=== PATIENT | female | born 1965 | race Caucasian/White ===

== ENCOUNTER 2016-12-12 07:55 | Day surgery (SDC) | payer OTHER ==
[~2016-12-12] VITALS: Ht 157.5 cm; Wt 67.6 kg
[2016-12-12 08:45] VITALS: Ht 157.5 cm; Wt 67.6 kg
--- NOTE | 2016-12-12 10:17 | OPPN ---
Date/Time of Note Date/Time of Note DATE: 12/12/16 TIME: 10:16 Operative Report Preoperative Diagnosis Screening Postoperative Diagnosis 2 small sigmoid polyps were removed Internal hemorrhoids Operation/Procedure Performed Colonoscopy and biopsy Surgeon see signature line medical assistant instructor None Anesthesia: moderate sedation Estimated blood loss: none Transfusion Required none Specimen Sigmoid polyps Grafts/Implants none Complications none LANI DIOP MD Dec 12, 2016 10:17
--- NOTE | 2016-12-12 10:17 | OPPN ---
Date/Time of Note Date/Time of Note DATE: 12/12/16 TIME: 10:16 Operative Report Preoperative Diagnosis Screening Postoperative Diagnosis 2 small sigmoid polyps were removed Internal hemorrhoids Operation/Procedure Performed Colonoscopy and biopsy Surgeon see signature line clinical laboratory assistant None Anesthesia: moderate sedation Estimated blood loss: none Transfusion Required none Specimen Sigmoid polyps Grafts/Implants none Complications none LANI DIOP MD Dec 12, 2016 10:17
--- NOTE | 2016-12-12 10:17 | OPPN ---
Date/Time of Note Date/Time of Note DATE: 12/12/16 TIME: 10:16 Operative Report Preoperative Diagnosis Screening Postoperative Diagnosis 2 small sigmoid polyps were removed Internal hemorrhoids Operation/Procedure Performed Colonoscopy and biopsy Surgeon see signature line surveyor instrument assistant None Anesthesia: moderate sedation Estimated blood loss: none Transfusion Required none Specimen Sigmoid polyps Grafts/Implants none Complications none LANI DIOP MD Dec 12, 2016 10:17
[2016-12-12] MEDS ORDERED: MIDAZOLAM 1 MG/ML 2 ML INJ ONE ×2 (10:20)
[2016-12-12] MEDS ORDERED: FENTAnyl 50 MCG/ML VIAL ONE (10:20)
[2016-12-12 10:45] VITALS: BP 113/56; RESP 14
--- NOTE | 2016-12-12 11:28 | GILP ---
DATE OF PROCEDURE: NAME OF PROCEDURES: Colonoscopy and biopsy. SURGEON: Lani Steel MD PREOPERATIVE DIAGNOSIS: Screening colonoscopy. POSTOPERATIVE DIAGNOSES 1. Colonoscopy all the way to the cecum. 2. Two small sigmoid colon polyps were removed. 3. Internal hemorrhoids. INDICATION FOR THE PROCEDURE: Ms. Connor Ackerman is a 51-year-old female patient who was schedu led for screening colonoscopy. The procedure and possible complications were well explained to the patient. The patient understood and consented to the procedure. DESCRIPTION OF PROCEDURE: Under the influence of fentanyl and Versed, the colonoscope was carefully introduced in the rectum and under direct vision, it was advanced all the way to the cecum. FINDINGS: The patient had 2 small sigmoid colon polyps and they were removed using the biopsy force ps. She had internal hemorrhoids. She tolerated the procedure very well and there was no complication from the procedure. At the end of the procedures, she was awake with stable vital signs and she was discharged home to the care of her family. IMPRESSION: 1. Colonoscopy all the way to the cecum. 2. Two small sigmoid colon polyps were removed. 3. Internal hemorrhoids. PLAN: Next screening colonoscopy in 5 years. Dictated By: LANI BEVERLY/MARLYN Conf#: [id number] DID#: [id number]
== END 2016-12-12 11:31 | disposition home or self-care (01) ==
LOC: GIL 07:55
PROVIDERS: ATTEND Internal Medicine Gastroenterology
DX: Z12.11 Encounter for screening for malignant neoplasm of colon (principal); D12.5 Benign neoplasm of sigmoid colon; K64.8 Other hemorrhoids
CPT/HCPCS: 45380; 88305; J2250; J3010